=== PATIENT | male | born 1990 | race Caucasian/White ===

== ENCOUNTER 2016-08-08 21:18 | Emergency (ER) | payer SELFPAY ==
[~2016-08-08] VITALS: Wt 79.5 kg
--- NOTE | 2016-08-08 23:28 | ERD ---
ER Documentation Chief Complaint Date/Time DATE: 08/08/16 TIME: 23:25 Chief Complaint fatigue, shelby hand numbness, guevara HPI This is a 25-year-old male who presents the emergency department today complaining of some fatigue for the past 2 weeks, bilateral hand and foot numbness and tingling, occasional headaches. Patient states that 6 months ago he had a physical and everything was "good. States that 4 years ago he used cocaine and methamphetamines 2 years ago. States that he drinks occasionally but every time he drinks he drinks approximately 18 beers. Denies any anxiety, nausea vomiting, fevers or chills, weight loss ROS All systems reviewed and are negative except as per history of present illness. Medications Home Meds Active Scripts Naproxen* (Naprosyn*) 500 Mg Tablet, 500 MG PO BID Y for PAIN AND/OR INFLAMMATION, #30 TAB Prov:RENÉ RG PA-C 08/09/16 PMhx/Soc Medical and Surgical Hx: pt denies Medical Hx, pt denies Surgical Hx History of Surgery: No Hx Neurological Disorder: No Hx Respiratory Disorders: No Hx Cardiac Disorders: No Hx Psychiatric Problems: No Hx Miscellaneous Medical Probl: No Hx Alcohol Use: Yes Hx Substance Use: No Hx Tobacco Use: No Smoking Status: Never smoker Physical Exam Vitals Vital Signs Date Time Temp Pulse Resp B/P Pulse Ox O2 Delivery O2 Flow Rate FiO2 08/08/16 21:23 98.6 81 20 140/60 97 Physical Exam Const: No acute distress Head: Atraumatic Eyes: Normal Conjunctiva. PERRLA. EOM intact. ENT: Normal External Ears, Nose and Mouth. Neck: Full range of motion..~ No meningismus. Resp: Clear to auscultation bilaterally Cardio: Regular rate and rhythm, no murmurs Abd: Soft, non tender, non distended. Normal bowel sounds Skin: No petechiae or rashes Ext: No cyanosis, or edema Neur: Awake and alert. Cranial nerves II through XII intact. No gait ataxia. Psych: Normal Mood and Affect Result Diagram: 08/08/16232108/08/162321 Results 24 hrs Laboratory Tests Test 08/08/16 23:22 Alanine Aminotransferase (ALT/SGPT) 32IU/L Albumin 4.5g/dl Albumin/Globulin Ratio 1.45 Alkaline Phosphatase 98IU/L Anion Gap 17 Aspartate Amino Transf (AST/SGOT) 39IU/L Basophils # 0.010^3/ul Basophils % 0.4% Blood Urea Nitrogen 21mg/dl Calcium Level 8.9mg/dl Carbon Dioxide Level 29mmol/L Chloride Level 100mmol/L Creatinine 0.92mg/dl Direct Bilirubin 0.00mg/dl Eosinophils # 0.410^3/ul Eosinophils % 5.8% Globulin 3.10g/dl Glucose Level 93mg/dl Hematocrit 39.3% Hemoglobin 13.3g/dl Indirect Bilirubin 0.6mg/dl Lipase 33U/L Lymphocytes # 2.410^3/ul Lymphocytes % 36.3% Mean Corpuscular Hemoglobin 31.4pg Mean Corpuscular Hemoglobin Concent 33.8g/dl Mean Corpuscular Volume 92.9fl Mean Platelet Volume 10.1fl Monocytes # 0.510^3/ul Monocytes % 7.8% Neutrophils # 3.310^3/ul Neutrophils % 49.6% Nucleated Red Blood Cells # 0.010^3/ul Nucleated Red Blood Cells % 0.0/100WBC Platelet Count 67948^3/UL Potassium Level 3.9mmol/L Red Blood Count 4.2310^6/ul Red Cell Distribution Width 12.5% Sodium Level 142mmol/L Total Bilirubin 0.6mg/dl Total Protein 7.6g/dl White Blood Count 6.710^3/ul Procedures/MDM This 25-year-old male who presents to the emergency department today complaining of fatigue, numbness and tingling in both his hands and feet as well as occasional headaches. Patient is afebrile and otherwise well-appearing here in the emergency department. His oxygen saturations 97%. He is not tachycardic. Blood pressures well controlled. I did obtain laboratory work given the patient's complaint of fatigue Laboratory work shows no elevated white blood cell count. His hemoglobin and hematocrit is very mildly decreased. Platelets are within normal limits. Electrolytes are within normal limits. Liver functions within normal limits. Lipase is within normal limits. Patient has generalized fatigue and numbness and tingling of uncertain etiology. I do not feel the patient requires further laboratory workup or imaging at this time. Patient's hemoglobin is very mildly decreased however I have low suspicion that anemia would be the cause of his fatigue and numbness and tingling. Patient is afebrile and otherwise well-appearing. There is no evidence to suggest alcoholic pancreatitis. Patient does not appear appear to be exhibiting any signs of delirium tremens. Patient was instructed to stop drinking alcohol. Low suspicion for cardiac cause of fatigue. Patient may also have signs and symptoms of anxiety given his numbness and tingling however I do not feel the patient would benefit from benzodiazepines at this time given his abuse of alcohol and former abuse of cocaine and methamphetamines. At this time the patient is stable for discharge and outpatient management. Patient should follow up with their PCP in the next 1-2 days. They may return to the emergency department sooner for any persistent or worsening of symptoms. Patient understood and agreed with the plan. Departure Diagnosis: Primary Impression: Fatigue Fatigue type: unspecified Qualified Code: R53.83 - Fatigue, unspecified type Additional Impression: Numbness and tingling in both hands Condition: RENÉ Tucker PA-C Aug 08, 2016 23:28
[2016-08-08 23:37] LABS: ADD SCAN DIFF NO
[2016-08-08 23:39] LABS: BASOPHILS % 0.4 % (0.0-2.0); EOSINOPHILS # 0.4 10^3/ul (0.0-0.5); EOSINOPHILS % 5.8 % (0.0-7.0); HEMATOCRIT 39.3 % (42.0-52.0); HEMOGLOBIN 13.3 g/dl (14.0-18.0); LYMPHOCYTES # 2.4 10^3/ul (0.8-2.9); LYMPHOCYTES % 36.3 % (15.0-51.0); MEAN CORPUSCULAR HEMOGLOBIN 31.4 pg (29.0-33.0); MEAN CORPUSCULAR HGB CONC 33.8 g/dl (32.0-37.0); MEAN CORPUSCULAR VOLUME 92.9 fl (82.0-101.0); MEAN PLATELET VOLUME 10.1 fl (7.4-10.4); MONOCYTE # 0.5 10^3/ul (0.3-0.9); MONOCYTES % 7.8 % (0.0-11.0); NEUTROPHIL # 3.3 10^3/ul (1.6-7.5); NEUTROPHILS % 49.6 % (39.0-77.0); PLATELET COUNT 218 10^3/UL (140-415); RED BLOOD COUNT 4.23 10^6/ul (4.70-6.10); RED CELL DISTRIBUTION WIDTH 12.5 % (11.5-14.5); WHITE BLOOD COUNT 6.7 10^3/ul (4.8-10.8)
[2016-08-08 23:57] LABS: ALBUMIN 4.5 g/dl (3.3-4.9); POTASSIUM 3.9 mmol/L (3.5-5.1)
[2016-08-08 23:59] LABS: BILIRUBIN,INDIRECT 0.6 mg/dl (0-1.1); BILIRUBIN,TOTAL 0.6 mg/dl (0.2-1.3); CREATININE 0.92 mg/dl (0.61-1.24)
[2016-08-09] LABS: ALBUMIN/GLOBULIN RATIO 1.45; CALCIUM 8.9 mg/dl (8.4-10.2); TOTAL PROTEIN 7.6 g/dl (6.1-8.1)
[2016-08-09] MEDS ORDERED: NAPR-260 PO (00:54)
== END 2016-08-09 03:43 | disposition home or self-care (01) ==
LOC: FTE 21:18 → E/R 08-09 03:43
DX: R53.83 Other fatigue (principal); R20.0 Anesthesia of skin; R20.2 Paresthesia of skin
CPT/HCPCS: 36415; 80053; 83690; 85025; 99283